=== PATIENT | female | born 1955 | race Caucasian/White ===

== ENCOUNTER 2020-08-05 11:23 | Outpatient (REF) | payer MEDICARE, SELFPAY | END 2020-08-05 11:24 | disposition home or self-care (01) | LOC: HO.MANLNP 11:23 | PROVIDERS: PCP Internal Medicine; Visit Provider Physician Assistant | DX: R30.9 Painful micturition, unspecified (principal) | CPT/HCPCS: 87086; 87088; 87186 ==

== ENCOUNTER 2021-04-30 13:51 | Outpatient (REF) | payer MEDICARE, SELFPAY ==
--- NOTE | ~2021-04-30 | MM_ITS ---
EXAMINATION: BONE DENSITOMETRY CLINICAL INDICATION: Osteopenia. COMPARISON: This is the patient's baseline examination. TECHNIQUE: Using a [employer] DXA System (software version: 13.1) manufactured by [employer], dual-energy x-ray absorptiometry was performed of the lumbar spine and left hip. The images are of good technical quality. Summary results are attached. FINDINGS: AP SPINE L1-L4: BMD 1.018 g/cm2, Z-score -0.1, T-score -1.4, osteopenia. LEFT FEMUR, NECK: BMD 0.817 g/cm2, Z-score -0.3, T-score -1.6, osteopenia. LEFT FEMUR, TOTAL: BMD 0.874 g/cm2, Z-score -0.1, T-score -1.1, osteopenia. IDENTIFIED RISK FACTORS: Height loss, menopause. HISTORY OF FRACTURE: None listed. MEDICATIONS: Multivitamin, vitamin D. MM/XR DEXA axial skeleton IMPRESSION: 1. DIAGNOSIS: Osteopenia based on the lowest T-score value of -1.6 in the femoral neck applying World Health Organization criteria. 2. 10-YEAR FRACTURE RISK PREDICTION, FRAX: Major osteoporotic fracture (clinical spine, forearm, hip or shoulder) 8.9%. Hip fracture 1.0%. 3. Treatment Recommendations: NOF guidelines recommend consideration for treatment in postmenopausal women and men age 50 and older presenting with the following: -A hip or vertebral (clinical or morphometric) fracture. -T-score less than or equal to -2.5 at the femoral neck or spine after appropriate evaluation to exclude secondary causes. -Low bone mass at the hip or spine and a 10-year fracture probability by FRAX of greater than or equal to 3% for hip fracture or greater than or equal to 20% for major osteoporotic fracture based on the [place] adapted WHO algorithm. 4. Other Recommendations: All treatment decisions require clinical judgment and consideration of individual patient factors, including patient preferences, comorbidities, previous drug use, risk factors not captured in the FRAX model (e.g. frailty, falls, vitamin D deficiency, increased bone turnover, interval significant decline in bone density) and possible under or overestimation of fracture risk by FRAX. Additional medical evaluation for secondary cause of low bone mineral density may be appropriate. FUTURE SCAN RECOMMENDATION: People with diagnosed cases of osteoporosis or at high risk for fracture should have regular bone mineral density tests. For patients eligible for Medicare, routine testing is allowed once every 2 years. The testing frequency can be increased to one year for patients who have rapidly progressing disease, those who are receiving or discontinuing medical therapy to restore bone mass, or have additional risk factors.
== END 2021-04-30 13:52 | disposition home or self-care (01) ==
LOC: HO.MAMMO 13:51
PROVIDERS: Visit Provider Internal Medicine
DX: Z13.820 Encounter for screening for osteoporosis (principal); M85.88 Other specified disorders of bone density and structure, other site; Z78.0 Asymptomatic menopausal state; Z79.899 Other long term (current) drug therapy
CPT/HCPCS: 77080

== ENCOUNTER 2022-05-05 13:57 | Outpatient (REF) | payer MEDICARE, SELFPAY | END 2022-05-05 13:58 | disposition home or self-care (01) | LOC: HO.MAMMO 13:57 | PROVIDERS: Visit Provider Internal Medicine | DX: Z12.31 Encounter for screening mammogram for malignant neoplasm of breast (principal) | CPT/HCPCS: 77063; 77067 ==

== ENCOUNTER 2023-09-06 13:52 | Outpatient (REF) | payer MEDICARE, SELFPAY ==
--- NOTE | ~2023-09-06 | MM_ITS ---
EXAMINATION: BONE DENSITOMETRY CLINICAL INDICATION: Osteoporosis. COMPARISON: Baseline BD dated 04/30/2021. TECHNIQUE: Using a [employer] DXA System (software version: 13.1) manufactured by [employer], dual-energy x-ray absorptiometry was performed of the lumbar spine and left hip. The images are of good technical quality. Summary results are attached. FINDINGS: LEFT FEMUR, NECK: Current: BMD 0.686 g/cm2, Z-score -1.1, T-score -2.5, osteoporosis. Baseline: BMD 0.817 g/cm2. LEFT FEMUR, TOTAL: Current: BMD 0.706 g/cm2, Z-score -1.3, T-score -2.4, osteopenia, 19.2% decrease from baseline (<5% change is not significant). Baseline: BMD 0.874 g/cm2. AP SPINE L1-L4: Current: BMD 1.019 g/cm2, Z-score 0.0, T-score -1.3, osteopenia, 0.1% increase from baseline (<5% change is not significant). Baseline: BMD 1.018 g/cm2. IDENTIFIED RISK FACTORS: Menopause, height loss. HISTORY OF FRACTURE: None listed. MEDICATIONS: Calcium, vitamin D. MM/XR DEXA axial skeleton IMPRESSION: 1. DIAGNOSIS: Osteoporosis based on the lowest T-score value of -2.5 in the femoral neck applying World Health Organization criteria. 2. 10-YEAR FRACTURE RISK PREDICTION, FRAX: According to the guidelines, FRAX calculation should only be performed on patients in the osteopenia bone density category. Therefore, FRAX was not performed on this patient. 3. Treatment Recommendations: NOF guidelines recommend consideration for treatment in postmenopausal women and men age 50 and older presenting with the following: -A hip or vertebral (clinical or morphometric) fracture. -T-score less than or equal to -2.5 at the femoral neck or spine after appropriate evaluation to exclude secondary causes. -Low bone mass at the hip or spine and a 10-year fracture probability by FRAX of greater than or equal to 3% for hip fracture or greater than or equal to 20% for major osteoporotic fracture based on the [place] adapted WHO algorithm. 4. Other Recommendations: All treatment decisions require clinical judgment and consideration of individual patient factors, including patient preferences, comorbidities, previous drug use, risk factors not captured in the FRAX model (e.g. frailty, falls, vitamin D deficiency, increased bone turnover, interval significant decline in bone density) and possible under or overestimation of fracture risk by FRAX. Additional medical evaluation for secondary cause of low bone mineral density may be appropriate. FUTURE SCAN RECOMMENDATION: People with diagnosed cases of osteoporosis or at high risk for fracture should have regular bone mineral density tests. For patients eligible for Medicare, routine testing is allowed once every 2 years. The testing frequency can be increased to one year for patients who have rapidly progressing disease, those who are receiving or discontinuing medical therapy to restore bone mass, or have additional risk factors.
== END 2023-09-06 13:53 | disposition home or self-care (01) ==
LOC: HO.MAMMO 13:52
PROVIDERS: PCP Internal Medicine; Visit Provider Physician Assistant
DX: Z13.820 Encounter for screening for osteoporosis (principal); Z78.0 Asymptomatic menopausal state; M81.0 Age-related osteoporosis without current pathological fracture
CPT/HCPCS: 77080

== ENCOUNTER 2024-03-28 15:29 | Outpatient (REF) | payer MEDICARE, SELFPAY ==
--- NOTE | ~2024-03-28 | MM_ITS ---
EXAMINATION: MM SCREENING DIGITAL BREAST TOMOSYNTHESIS, BILATERAL CLINICAL INFORMATION: Screening. Asymptomatic. COMPARISON: Mammography: Comparison is made with available priors TECHNIQUE: Digital breast mammography with tomosynthesis is performed in both the craniocaudal and mediolateral oblique views along with computer-aided detection (CAD). FINDINGS: There are scattered areas of fibroglandular density (ACR BI-RADS breast composition Category b). Asymmetry lateral left breast posterior depth on CC view stable dating back to 2019. There are no significant masses, abnormal calcifications, or other abnormalities. MM/MM tomosynthesis screening BI IMPRESSION: No mammographic evidence of malignancy. ASSESSMENT: BI-RADS BI-RADS 2 - Benign Findings RECOMMENDATION: Routine annual mammography screening. 1 year F/U This examination should not preclude the clinical evaluation of a suspicious palpable abnormality. This patient's information was entered into a reminder system with a target due date for their next mammogram. Electronically signed by: Danuta Martin DO 04/06/2024 01:41 PM [facility]
== END 2024-03-28 15:30 | disposition home or self-care (01) ==
LOC: HO.MAMMO 15:29
PROVIDERS: PCP Internal Medicine; Visit Provider Internal Medicine
DX: Z12.31 Encounter for screening mammogram for malignant neoplasm of breast (principal)
CPT/HCPCS: 77063; 77067

== ENCOUNTER → 2024-03-28 15:45 | Outpatient (BNV) | payer MEDICARE, SELFPAY | PROVIDERS: PCP Internal Medicine; Visit Provider Internal Medicine | DX: Z12.31 Encounter for screening mammogram for malignant neoplasm of breast (principal) | CPT/HCPCS: 77063; 77067 ==

== ENCOUNTER 2024-10-01 11:23 | Day surgery (SDC) | payer MEDICARE, SELFPAY ==
--- OUTSIDE RECORDS SUMMARY | 2024-05-18 07:54 | XMS_ITS | Patient Health Record ---
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 Name Role Phone Black Lyn Primary Care Provider Alexi Sow Unavailable [phone] ALLERGIES Allergen (clinical drug ingredient) Drug/Non Drug Allergy documented on EMR Reaction Allergy Type Onset Date Status Substance with sulfonamide structure and antibacterial mechanism of action (substance) Sulfa Antibiotics Unknown Drug Allergy A ctive sulfamethoxazole / trimethoprim Bactrim Unknown Drug Allergy Active amoxicillin / clavulanate Augmentin Unknown Drug Allergy Active REASON FOR REFERRAL No Information MEDICATIONS Medication SIG (Take, Route, Frequency, Duration) Notes Start Date End Date Status Escitalopram Oxalate 20 MG TAKE 1 TABLET BY MOUTH EVERY DAY Oral for 90 Active PriLOSEC OTC 20 MG 1 tablet 30 minutes before morning meal Orally PRN Active Calcium 1500 MG 1 tablet with food O rally Twice a day for 30 day(s) 03/28/2024 Active Vitamin D 1000 UNIT 1 capsule Orally Onc e a day for 30 day(s) 03/28/2024 Active IMMUNIZATIONS Vaccine Route Administration Date Status Comme nts Influenza Unknown 03/06/2024 Administered SOCIAL HISTORY Tobacco Use: Social History Observation Description Date Details (start date - stop date) Never Smoker NA - NA Sex Assigned At : Social History Observation Description Sex Assigned At Unknown Tobacco Use/Smoking Question Answer Notes Patient is a nonsmoker Alcohol Screen Question Answer Notes Did you have a drink containing alcohol in the p ast year? No Points 0 Interpretation Negative PROBLEMS Problem Type ICD Code Onset Dates Problem Status W/U Status Risk SNOMED Code Notes Problem Colon cancer screening (Z12.11) Active confirmed Colon cancer screening (660308770) Problem Encounter for other preprocedural examination (Z01.818) Active confirmed Pre-procedure evaluation check (311380866) VITAL SIGNS Temperature 97.3 degrees Fahrenheit 03/28/2024 Blood pressure diastolic 00 mm Hg 03/28/2024 Height 4 ft 11 in in 03/28/2024 Blood pressure systolic 000 mm Hg 03/28/2024 Weight 161 lb 6 oz lbs 03/28/2024 BMI 32.59 kg/m2 03/28/2024 Encounters Encounter Location Date Provider Diagnosis [facility] [address] [place] [address] 03/28/2024 Alexi Navarro Colon cancer screeni ng Z12.11 and Encounter for other preprocedural examination Z01.818 ASSESSMENTS Encounter Date Diagnosis Assessment Notes Treatment Notes Treatment Clinical Notes 03/28/2024 Colon cancer screening (ICD-10 - Z12.11) 03/28/2024 Encounter for other preprocedural examination (ICD-10 - Z01.818) PLAN OF TREATMENT Future Test Test Name Order Date COLONOSCOPY 03/28/2024 Next Appt Details Provider Name:Alexi Navarro , 07/23/2024 11:30:00 AM, [address] [facility] , [place], [place], [id number], Insurance Providers Payer Name Payer Address Payer Phone Subscriber Number Group Number Insured Name Patient Relationship to Insured Coverage Start Date Coverage End Date [facility] [address] [address] [place] [address] [id number] ADRIA ROBERTS Self - patient is the insured MEDICAL (GENERAL) HISTORY Medical History History ICD Code Denies ID,DM,CVA,Lung disease,renal dise ase Negative screening colonoscopy in 2010 Norovirus 10/2023 Depression Surgical History Surgery Date(Month/Year) Retina repair in right eye Cataract surgery right eye [facility]
--- OUTSIDE RECORDS SUMMARY | 2024-05-18 07:55 | XMS_ITS | Data Portability ---
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 MEET 2 OUT OF 3 ELEMENTS: PROBLEMS, DATA OR RISK ELEMENT 1: PROBLEMS ADDRESSED 1 OR MORE CHRONIC ILLNESS WITH EXACERBATION OR 2 OR MORE STABLE CHRONIC ILLNESSES OR 1 UNDIAGNOSED NEW PROBLEM OR 1 ACUTE ILLNESS W/SYMPTOMS OR 1 ACUTE COMPLICATED INJURY ELEMENT 2: DATA MUST MEET 1 OF 3 CATEGORIES CATEGORY 1: REVIEW OF PRIOR EXTERNAL NOTES, REVIEW OF RESULTS, ORDERING OF EACH TEST, ASSESSMENT REQUIRING INDEPENDENT HISTORIAN OR CATEGORY 2: INDEPENDENT INTERPRETATION OF TESTS BY ANOTHER PHYSICIAN OR SPECIALIST OR CATEGORY 3: DISCUSSION OF MGT OR TEST INTERPRETATION W/EXTERNAL PHYSICIAN OR SPECIALIST ELEMENT 3: RISK RISK OF COMPLICATIONS AND/OR MORBIDITY OR MORTALITY OF PATIENT MANAGEMENT PROVIDER MUST THOROUGHLY DOCUMENT EACH ELEMENT THAT IS COVERED Not available 01/07/2023 16:18:25 06/08/2023 06/08/2023 [id number] [place] [id number] (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 MEET 2 OUT OF 3 ELEMENTS: PROBLEMS, DATA OR RISK ELEMENT 1: PROBLEMS ADDRESSED 1 OR MORE CHRONIC ILLNESS WITH EXACERBATION OR 2 OR MORE STABLE CHRONIC ILLNESSES OR 1 UNDIAGNOSED NEW PROBLEM OR 1 ACUTE ILLNESS W/SYMPTOMS OR 1 ACUTE COMPLICATED INJURY ELEMENT 2: DATA MUST MEET 1 OF 3 CATEGORIES CATEGORY 1: REVIEW OF PRIOR EXTERNAL NOTES, REVIEW OF RESULTS, ORDERING OF EACH TEST, ASSESSMENT REQUIRING INDEPENDENT HISTORIAN OR CATEGORY 2: INDEPENDENT INTERPRETATION OF TESTS BY ANOTHER PHYSICIAN OR SPECIALIST OR CATEGORY 3: DISCUSSION OF MGT OR TEST INTERPRETATION W/EXTERNAL PHYSICIAN OR SPECIALIST ELEMENT 3: RISK RISK OF COMPLICATIONS AND/OR MORBIDITY OR MORTALITY OF PATIENT MANAGEMENT PROVIDER MUST THOROUGHLY DOCUMENT EACH ELEMENT THAT IS COVERED Not available 06/08/2023 13:55:33 Plan of Treatment Reminders Order Date Submit Date Provider Last Modified By Organization Details Last Modified Time Details Appointments None recorded. Lab urinalysis complete, reflex culture 2023 [facility], [address] [place] [address], [id number], 4 06:46:18 uric acid, serum or plasma 2023 [facility], [address] [place] [address], 18[address], 4 11:48:31 ESR (erythrocy te sedimentat ion rate), blood 2023 [facility], [address] [place] [address], [address], 4 11:48:31 lyme disease igg+igm, serum, reflex western blot 2023 [facility], [address] [place] [address], [address], 4 15:15:58 JONNY + rf (antinucle ar antibodies + rheumatoid factor), quantitati ve, serum 2023 024 [facility], [address] [place] [address], [address], 4 11:48:31 dsDNA Ab, serum 2023 [facility], [address] [place] [address], [address], 4 15:08:26 ccp (cyclic citrullina antonino peptide) iga+igg, serum 2023 [facility], [address] [place] [address], [address], 4 08:44:59 C-reactive protein, quantitati ve, serum or plasma 2023 [facility], [address] [place] [address], 313[address], 4 11:48:31 PTH (parathyro id hormone), intact + calcium, serum or plasma 2023 [facility], [address] [place] [address], [address], 4 19:40:31 CK (creatine kinase), total, serum 2023 [facility], [address] [place] [address], [address], 4 11:48:31 TSH + free T4, serum 2023 [facility], [address] [place] [address], [address], 4 11:48:31 thyroid peroxidase (tpo) Ab, serum 2023 [facility], [address] [place] [address], 12[address], 4 11:48:30 iron + TIBC + ferritin, serum 2023 024 [facility], [address] [place] [address], 28035, 4 11:48:30 vitamin D, 25-hydroxy , total, serum 2023 024 [facility], [address] [place] [address], [address], 4 11:48:30 vitamin B12 + folate, serum or blood 2023 024 [facility], [address] [place] [address], 739[address], 4 06:47:05 CBC w/ auto diff 2023 024 [facility], [address] [place] [address], 05992, 4 06:45:57 magnesium, serum or plasma 2023 024 [facility], [address] [place] [address], [address], 4 11:48:30 phosphorus , serum or plasma 2023 024 [facility], [address] [place] [address], [address], 4 11:48:31 hemoglobin A1c, QN, blood 2023 024 [facility], [address] [place] [address], 744[address], 4 06:46:40 CBC w/ auto diff 2023 024 [facility] ([facility]), [address] [place] [address], [address], 4 15:11:36 CMP, serum or plasma 2023 024 [facility] ([facility]), [address] [place] [address], [address], 4 15:11:36 amylase + lipase, serum 2023 024 [facility] ([facility]), [address] [place] [address], 17184, 4 15:11:36 gamma-glut amyl transferas e (ggt), serum 2023 024 [facility] ([facility]patient), [address] [place] [address], 80[address], 4 15:11:36 calprotect in, stool 2023 [facility] (Out[facility]), [address] [place] [address], [address], 4 08:51:18 ESR (erythrocy te sedimentat ion rate), blood 2023 024 [facility] (Outpatient), [address] [place] [address], [address]79, 4 15:11:36 C-reactive protein, quantitati ve, serum or plasma 2023 024 [facility] (Outpatient), [address] [place] [address], [address], 4 15:11:36 gastrointe stinal pathogens panel, PCR, stool 2023 024 [facility] (Outpatient), [address] [place] [address], [address], 4 10:04:59 Referral gastroente rologist referral 2023 024 pedro Navarro MD, [address] [place] [address], [address], 4 08:38:47 Procedures None recorded. Surgeries None recorded. Imaging CT, head + brain, w/o contrast 2022 023 [email or web address] Not available 3 08:41:16 CT, abdomen + pelvis, w/o contrast 2023 024 [email or web address] Not available 4 12:22:13 Medication Orders clotrimazo le-betamet hasone 1 %-0.05 % topical cream 2022 023 [place] [facility], [address] [place], [address], 3 16:24:26 nitrofuran toin monohydrat e/macrocry stals 100 mg capsule 2023 024 [facility], [address] [place], [address], 4 14:53:22 metronidaz ole 500 mg tablet 2023 024 [facility]2024, [address] [place], [address], 4 10:36:20 Patient TargetsNo targets recorded. 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 for Screening for malignant neoplasm of colon overdue for colonoscopy Referring Physician: Renata Blue, Internal Medicine, Encounter Date: 11/28/2023 Results Created Date Observation Date Name Description Value Unit Range Abnormal Flag Note LastModifiedBy Organization Detail LastModifiedTime 01/08/2001/07/2023 pulse oxime try* Result 96% Not Available [facility] [address] [place], [address], 01/03/2023 09:02:00 06/08/19 24 06/08/2023 pulse oxime try* Result 96% Not Available [facility] [address] [facility] [place], [address], 06/07/2023 18:14:54 05/14/20 22 05/05/2022 MAMMO , scree eriberto, digit al, bilat eral No observ ation record ed. [address] [place], [address], 05/14/2022 12:32:27 02/19/20 23 02/16/2023 CT, head + brain , w/o contr ast No observ ation record ed. [facility] [address] [place] [address], [address], 02/20/2023 21:44:28 09/07/19 24 09/06/2023 bone densi ty No observ ation record ed. [address] [place], [address], 09/07/2023 09:08:02 09/07/19 24 09/06/2023 bone densi ty No observ ation record ed. [address] [place], [address], 09/07/2023 09:47:33 12/28/19 24 12/23/2023 CT, abdom en + pelvi s, w/o contr ast No observ ation record ed. [email or web address] [address], [address], 12/30/2023 09:33:37 04/06/20 24 03/28/2024 MAMMO , scree eriberto, digit al, bilat eral No observ ation record ed. [address] [place], [address], 04/06/2024 13:56:36 Result Notes None recorded. Problems Name Problem SNOMED Code Status Onset Date Resolution Date Notes Provider Name and Address Organization Details Recorded Time Anxiety 03889584 Active 2018 Not Available [facility] 2 12:46:54 Vitamin D deficienc y 19873805 Active 2019 Not Available [facility] 2 12:46:54 Mood disorder 33296334 Active 2019 Not Available [facility] 2 12:46:54 Lumbar DXA scan result osteopeni c 517501381 Active 2020 Not Available [facility] 2 12:46:54 Postmenop ausal osteopeni a 108346028 Active 2021 Not Available [facility] 2 12:46:54 Chronic obstructi ve pulmonary disease 24319147 Active 2021 Black Lyn, DO [address] [place] [address], [address], [facility] 2 16:02:04 Serous otitis media 10152503 Active 2021 Black Lyn, DO [address] [place] [address], [address], [facility] 2 16:02:15 Acute bronchiti s 36429290 Active 2022 INDER ALVARADO [address] [place] [address], [address], [facility] 3 11:01:58 Unilatera l left sided headache 6809903670 Active 2022 Black Lyn DO [address] [place] [address], [address], [facility] 3 16:15:27 Intertrig o 55959262 Active 2022 Black Lyn DO [address] [place] [address], [address], [facility] 3 16:24:01 Acute urinary tract infection 683180153 Active 2022 INDER ALVARADO [address] [place] [address], [address], [facility] 3 14:06:00 Multiple joint pain 47176648 Active 2023 INDER ALVARADO [address] [place] [address], [address], [facility] 4 11:36:59 Fatigue 34032201 Active 2023 INDER ALVARADO [address] [place], [address], [facility] 4 11:38:55 Hyperpara thyroidis m 56362806 Active 2023 INDER ALVARADO [address] [place], [address], [facility] 4 09:23:40 Osteoporo sis 51757101 Active 2023 INDER ALVARADO [address] [place], [address], [facility] 4 14:06:44 Asthma 461055826 Active 2017 Not Available [facility] 2 12:46:54 Cyst of left ovary 786098653406 58786 Active 2017 Not Available [facility] 2 12:46:54 Cyst of kidney 434499135 Active 2017 left Not Available [facility] 2 12:46:54 Gastroeso phageal reflux disease 065823558 Active 2017 Not Available [facility] 2 12:46:54 Hiatal hernia 46877758 Active 2017 Not Available [facility] 2 12:46:54 Osteopeni a 909349233 Active 2017 lower spine/ hip Not Available [facility] 2 12:46:54 Hyperchol esterolem ia 76199430 Active 2017 Not Available [facility] 2 12:46:54 Premature atrial contracti on 642968531 Active 2017 Not Available [facility] 2 12:46:54 Ventricul ar premature beats 76560380 Active 2017 Not Available [facility] 2 12:46:54 Impaired fasting glycemia 063966669 Active 2017 Not Available [facility] 2 12:46:54 Diverticu litis of colon 950204853 Active 2023 INDER ALVARADO [address] [place], [address], [facility] 15:03:30 Problem Notes None recorded. Procedures Surgical History Date Name Laterality Status Provider Name and Address Organization Details Recorded Time 6 Date of Last Pap Smear completed [facility] 10/09/2018 08:18:30 6 Most Recent Mammogram completed Fallon Jordan [facility] 11/06/2018 11:58:21 1 Colonoscopy completed Savannah Jimenez [facility] 10/09/2018 08:19:55 Imaging Results Imaging Date Name Status LastModified by Organiz ation Details LastModified Time 05/05/2022 MAMMO, screening, digital, bilateral completed [address] [place], [address], 05/14/2022 12:32:27 02/16/2023 CT, head + brain, w/o contrast completed [email or web address] [facility] [address] [place] [address], [address], 02/20/2023 21:44:28 09/06/2023 bone density completed [address] [place], [address], 09/07/2023 09:08:02 09/06/2023 bone density completed [address] [place], [address], 09/07/2023 09:47:33 12/23/2023 CT, abdomen + pelvis, w/o contrast completed [email or web address] [place] [address], [address], 12/30/2023 09:33:37 03/28/2024 MAMMO, screening, digital, bilateral completed [email or web address] [address] [place], [address], 04/06/2024 13:56:36 Procedure Notes None recorded. Medical Equipment None Reported. Allergies Allergen ID Allergen Name Allergen Category Reaction Reaction Severity Criticality Documentation Date Start Date Code Code System Note Provider Name and Address Organization Details Recorded Time 874 Bactrim medicatio n rash Not available Not available 08/31/2017 32245 9 RxNorm Norma Sainiicki [facility] 8 08:19:35 875 Augmentin medicatio n diarrhea severe Not available 08/31/2017 19252 2 RxNorm Norma Sainiicki [facility] 8 08:19:57 876 Levaquin medicatio n rash mild Not available 08/31/2017 45403 2 RxNorm Norma Layton [facility] 8 08:20:31 877 Substance with sulfonami de structure and antibacte rial mechanism of action (substanc e) medicatio n rash Not available Not available 08/31/2017 89281 8003 SNOMED Norma Layton [facility] 8 08:20:42 Medications Name Sig Start Date Stop Date Status Note LastModified by Organization Details LastModified Time prednisone 10 mg tablet take 40 mg x 3 daystake 30 mg x 3 days take 20 mg x 3 days take 10 mg x 3 days 08/27 completed Not Available Not Available Not Available nitrofurant oin macrocrysta l 50 mg capsule TAKE 1 CAPSULE BY MOUTH AFTER INTERCOUR SE 11/27 completed Not Available Not Available Not Available cefaclor 500 mg capsule 08/27 completed Not Available Not Available Not Available ofloxacin 0.3 % eye drops 03/16 completed Not Available Not Available Not Available citalopram 10 mg tablet Take 1 tablet every day by oral route for 30 days. 10/09 completed Not Available Not Available Not Available Medrol (Rob) 4 mg tablets in a dose pack Take 1 dose pk by oral route. 2023 active Not Available Not Available Not Avai lable Zithromax Z-Rob 250 mg tablet TAKE 2 TABLETS (500 MG) BY ORAL ROUTE ONCE DAILY FOR 1 DAY THEN 1 TABLET (250 MG) BY ORAL ROUTE ONCE DAILY FOR 4 DAYS 2023 active Not Available Not Available Not Avai lable ketorolac 0.5 % eye drops 08/07 completed Not Available Not Available Not Available prednisolon e acetate 1 % eye drops,suspe nsion 03/16 completed Not Available Not Available Not Available lorazepam 0.5 mg tablet take 1-2 tablets bid prn panic 11/25 completed Not Available Not Available Not Available meclizine 25 mg tablet Take 1 tablet 3 times a day by oral route as needed for 10 days. 08/27 completed Not Available Not Available Not Available diazepam 2 mg tablet Take 1 tablet 3 times a day by oral route as needed for 7 days. 02/05 completed Not Available Not Available Not Available cephalexin 500 mg capsule Take 1 capsule 3 times a day by oral route for 7 days. 06/24 completed Not Available Not Available Not Available oseltamivir 75 mg capsule 07/03 completed Not Available Not Available Not Available clotrimazol e-betametha sone 1 %-0.05 % topical cream APPLY TO AFFECTED & SURROUNDI NG AREAS TWICE A DAY FOR 2 WEEKS TOPICALLY IN THE MORNING AND EVENING active Not Available Not Available No t Available polymyxin B sulfate 10,000 unit-trimet hoprim 1 mg/mL eye drops PLACE 1 DROP INTO RIGHT EYE 4 TIMES A DAY 3 DAYS PRIOR TO SURGERY AND CONTINUE THE DAY AFTER 03/16 completed Not Available Not Available Not Available albuterol sulfate HFA 90 mcg/actuati on aerosol inhaler INHALE 1-2 PUFFS EVERY 4-6 HOURS NEEDED active Not Available Not Available No t Available escitalopra m 10 mg tablet TAKE 1 AND 1/2 TABLETS DAILY BY MOUTH 02/05 completed Not Available Not Available Not Available escitalopra m 20 mg tablet TAKE 1 TABLET BY MOUTH EVERY DAY 2023 active Not Available Not Available Not Avai lable nitrofurant oin monohydrate /macrocryst als 100 mg capsule TAKE 1 CAPSULE BY MOUTH TWICE A DAY FOR 10 DAYS 11/27 completed Not Available Not Available Not Available Boostrix Tdap 2.5 Lf unit-8 mcg-5 Lf/0.5 mL intramuscul ar syringe ADM 0.5ML IM UTD 07/30 completed Not Available Not Available Not Available Calcium 500 once a day active Not Available Not Available No t Available Vitamin D3 25 mcg (1,000 unit) chewable tablet Take 2 tablets every day by oral route. active Not Available Not Available No t Available BinaxNOW COVID-19 Ag Self Test kit FOLLOW PACKAGE DIRECTION S 08/07 completed Not Available Not Available Not Available Vitals Date Recorded Body height Body mass index (BMI) Body weight Heart rate Oxygen saturation Oxygen saturation in Arterial blood by Pulse oximetry Systolic blood pressure Diastolic blood pressure Provider Name and Address Organization Details Last Updated DateTime 2 151.77 cm 32.5 kg/m2 65128.4 6 g 80 /min 98 % 98 % 128 mm[Hg] 78 mm[Hg] Black Lyn, DO [address] [place], [address] [place] [address] Internal [facility] 2 15:19:54 Date Recorded Body height Body mass index (BMI) Body weight Heart rate Oxygen saturation Oxygen saturation in Arterial blood by Pulse oximetry Systolic blood pressure Diastolic blood pressure Provider Name and Address Organization Details Last Updated DateTime 3 151.77 cm 33.1 kg/m2 21773.5 2 g 85 /min 96 % 96 % 140 mm[Hg] 84 mm[Hg] Priscila Mendez [facility] 3 15:59:43 Date Recorded Body height Body mass index (BMI) Body weight Heart rate Oxygen saturation Oxygen saturation in Arterial blood by Pulse oximetry Systolic blood pressure Diastolic blood pressure Provider Name and Address Organization Details Last Updated DateTime 4 151.77 cm 32.7 kg/m2 20319.3 3 g 81 /min 96 % 96 % 138 mm[Hg] 80 mm[Hg] Priscila Mendez [facility] 4 13:37:52 Date Recorded Body height Body mass index (BMI) Body weight Heart rate Oxygen saturation Oxygen saturation in Arterial blood by Pulse oximetry Systolic blood pressure Diastolic blood pressure Provider Name and Address Organization Details Last Updated DateTime 4 151.77 cm 33.2 kg/m2 71709.3 9 g 76 /min 98 % 98 % 132 mm[Hg] 84 mm[Hg] Amaya Diallo [facility] 4 11:28:34 Date Recorded Body height Body mass index (BMI) Body weight Heart rate Oxygen saturation Oxygen saturation in Arterial blood by Pulse oximetry Systolic blood pressure Diastolic blood pressure Provider Name and Address Organization Details Last Updated DateTime 4 151.13 cm 32.8 kg/m2 42668.7 4 g 60 /min 98 % 98 % 118 mm[Hg] 70 mm[Hg] Cl Deleon [facility] 4 14:55:01 Social History Question Answer Notes LastModified by Organizat ion Details LastModified Time Tobacco Smoking Status Former Smoker Not Available [facility] 03/25/2020 03:36:24 What Was The Date Of Your Most Recent Tobacco Screening? 11/28/2023 [email or web address] Information not available 11/28/2023 Do You Or Have You Ever Used Any Other Forms Of Tobacco Or Nicotine? No Information not available 08/31/2021 Sex: Unknown Functional Status None recorded. Mental Status None recorded. Family History Nothing Reported. Medical History No medical history recorded. Gynecological History Statement/Question Response Date of Last Pap Smear 12/03/2015 Most Recent Mammogram 12/02/2015 Obstetrics History GPAL:G 0 P 0 0 0 0 Immunizations Vaccine Type Date Status Note Provider Nam e and Address Organization Details Recorded Time COVID-19, mRNA, LNP-S, PF, 30 mcg/0.3 mL dose 08/10/19 21 completed Black Lyn DO [address] [place] [address], [address], [facility] 01/07/2021 15:30:22 COVID-19, mRNA, LNP-S, PF, 30 mcg/0.3 mL dose 09/10/19 22 completed INDER ALVARADO [address] [place] [address], [address], [facility] 09/10/2021 13:41:18 Pneumococcal conjugate PCV20, polysaccharide BVB169 conjugate, adjuvant, PF 09/24/19 22 completed Not Available [facility] 08/27/2022 03:01:06 Influenza, split virus, quadrivalent, preservative 06/23/19 22 completed Savannah ware [facility] 09/25/2021 13:28:21 Influenza, split virus, quadrivalent, preservative 03/03/20 18 [facility] 03/06[facility]2018 08:16:58 Influenza, split virus, quadrivalent, preservative 02/04/20 22 completed Black Lyn, [address] [place], [address], [facility] 03/16/2022 15:18:10 Influenza, split virus, quadrivalent, preservative 02/13/20 19 [facility] 02/13/2019 08:01:26 Influenza, split virus, quadrivalent, preservative 01/23/20 20 completed Black Lyn, [address] [place], [address], [facility] 01/24/2020 18:38:24 Tdap 02/12/20 20 completed Norma Layton [facility] 02/13/2020 13:31:12 COVID-19, mRNA, LNP-S, PF, 30 mcg/0.3 mL dose 07/19/19 21 [facility] 07/30/[facility] 14:03:23 Past Encounters Encounter ID Performer Location Encounter Start Date Encounter Closed Date Diagnosis/Indication Diagnosis SNOMED-CT Code Diagnosis ICD10 Code [id number] Yarely Chavez NP, [address] [place] [address] 08/31/2017 11:24:03 08/31/2017 11:59:14 Asthmatic bronchitis 226149296 J45.909 [id number] Yarely Chavez NP, [address] [place] [address] 09/20/2017 10:44:43 09/20/2017 15:54:17 Blood in urine 89006529 R31.9 Acute cystitis 03298408 N30.01 [id number] Yarely Chavez NP, [facility] [address] [place] [address] 07/03/2018 11:17:46 07/03/2018 14:37:47 Asthma 461556665 J45.909 Hypercholesterolemia 136 30130 E78.00 Impaired f asting glycemia 144482626 R73.01 Otitis media 70939998 H6 6.93 [id number] [facility] [address] [place] [address] [place] [address] 11/07/2018 15:08:45 11/07/2018 16:50:17 Adult health examination 215960560 Z00.00 Active or passive immunization 259936566 Z23 Hypercholesterolemia 136 47516 E78.00 Asthma 270200599 J45.90 9 Gastroesop hageal reflux disease 363143252 K21.9 Body mass index 25-29 - overweight 261328147 Z68.25 Vitamin D deficiency 347 00336 E55.9 Osteopenia 162066600 M85 .80 Impaired f asting glycemia 040576289 R73.01 Lightheadedness 09244896 8 R42 [id number] [facility] [address] [place] [address] [place] [address] 11/29/2018 14:38:46 11/29/2018 15:35:11 Atypical chest pain 739102858 R07.89 Increased blood pressure 39862805 R03.0 Panic disorder [id number] F41.0 [id number] [facility] [address] [place] [address] [place] [address] 07/06/2019 15:48:36 07/10/2019 11:09:00 Asthma [id number] J45.909 Gastroesop hageal reflux disease 685426469 K21.9 Impaired f asting glycemia 774169871 R73.01 Otitis media 40540864 H6 6.92 Vertigo 462829428 R42 [id number] [facility] [address] [place] [address] mehran [place] [address] 08/12/2019 11:15:59 08/20/2019 10:45:35 Acute exacerbation of asthma 333343564 J45.901 Acute sinusitis 88208780 J01.90 [id number] Cordelia MICHAEL Fountain [facility] Internal [facility] [address] [facility],[place] [address] 08/28/2019 09:06:47 08/28/2019 10:53:19 Anxiety 68008241 F41.9 Asthma 658370210 J45.90 9 [id number] INDER ALVARADO [facility] [address] [place] [address],[place] [address] 09/07/2019 10:15:25 09/07/2019 11:58:49 Anxiety 95538046 F41.9 Depressive disorder 3548 9007 F32.9 [id number] INDER ALVARADO [facility] [address] [place] [address],[place] [address] 09/11/2019 10:31:52 09/11/2019 12:12:08 Anxiety 01037798 F41.9 Depressive disorder 3548 [id number] [facility] Internal [facility] [address] [place] [address],[place] [address] 10/08/2019 14:46:15 10/08/2019 15:29:45 Asthma 784185953 J45.909 Impaired f asting glycemia 324203379 R73.01 Posttrauma tic stress disorder 21393242 F43.[id number] [facility] [address] [place] [address],[place] [address] 11/02/2019 14:13:52 11/02/2019 15:30:34 Asthma 694922748 J45.909 Anxiety 35549104 F41.9 Vitamin D deficiency 347 26416 E55.9 Impaired f asting glycemia 954366138 R73.01 Hypercholesterolemia [id number] [facility] [address] [place] [address],[place] [address] 11/13/2019 15:48:38 11/13/2019 16:49:57 Mood disorder 90887130 F39 Impaired f asting glycemia 792314729 R73.01 Premature atrial contraction 722435504 I49.1 [id number] [facility] [address] [place] [address] 11/26/2019 13:41:31 11/26/2019 14:37:39 Asthma 811444696 J45.909 Anxiety 72615051 F41.9 Posttrauma tic stress disorder 96777501 F43.10 [id number] [facility] [address] [place] [address] 12/26/2019 14:07:00 12/26/2019 14:53:23 Mood disorder 56198568 F39 Asthma 252600337 J45.90 9 Ventricula r premature beats 86302362 I49.3 Impaired f asting glycemia 162985531 R73.01 [id number] [facility] [address] [place] [address] 02/06/2020 11:05:30 02/06/2020 11:47:26 Anxiety 61509205 F41.9 Impaired f asting glycemia 324183661 R73.01 Asthma 359773177 J45.90 9 [id number] [facility] [address] [place] [address] 03/24/2020 13:42:44 03/24/2020 14:57:16 Asthma 893114307 J45.909 Impaired f asting glycemia 081662052 R73.01 [id number] [facility] [address] [place] [address] 07/30/2020 13:57:27 07/30/2020 14:38:03 Active or passive immunization 333897054 Z23 Adult [facility] th examination 959502006 Z00.00 Asthma 454678779 J45.90 9 Osteopenia 996508465 M85 .80 [id number] RENATA BLUE [facility] Internal Medicine [address] [place] [address] 08/05/2020 10:53:16 08/05/2020 11:25:52 Dysuria 33519591 R30.9 Asthma 642601233 J45.[id number] [facility] [address] [place] [address] 01/07/2021 15:19:35 01/07/2021 15:59:33 Impaired fasting glycemia 376586346 R73.01 Gastroesop hageal reflux disease 114625116 K21.9 Asthma 116433640 J45.90 9 Mood disorder 56757075 F 39 Lumbar DXA scan result osteopenic 343647411 M85.[id number] [facility] [address] [place] [address] 08/31/2021 15:53:39 09/01/2021 10:26:47 Asthma 227521061 J45.909 Hypercholesterolemia 136 86375 E78.00 Impaired f asting glycemia 313404267 R73.01 Hepatitis C screening 41 6909981 Z11.59 Mood disorder 19128814 F 39 Postmenopa usal osteopenia 229249629 M85.80 [id number] INDER ALVARADO [facility] [address] [place] [address] 09/25/2021 13:25:09 09/28/2021 15:40:42 Pre-surgery evaluation 943772473 Z01.[id number] [facility] [address] [place] [address] 03/16/2022 14:54:15 03/16/2022 16:09:36 Active or passive immunization 352578888 Z23 Adult [facility] th examination 464652875 Z00.00 Impaired f asting glycemia 131188690 R73.01 Hepatitis C screening 41 5282052 Z11.59 Screening mammography 24 838946 Z12.31 Advance care planning 71 8334510 Z71.89 Serous otitis media 8032 7007 H65.93 Chronic ob structive pulmonary disease 67023430 J44.9 [id number] [facility] [address] [facility] [address] 01/07/2023 15:52:59 01/07/2023 16:26:46 Asthma 224429307 J45.909 Chronic ob structive pulmonary disease 59453612 J44.9 Hypercholesterolemia 136 43693 E78.00 Premature atrial contraction 931443252 I49.1 Unilateral left sided headache 4218853060 R51.9 Mood disorder 64784794 F 39 Intertrigo 32644602 L30. 4 [id number] [facility] [address] [facility] [address] 06/08/2023 13:31:00 06/08/2023 14:44:15 Pre-surgery evaluation 806014736 Z01.818 Chronic ob structive pulmonary disease 18835866 J44.9 Serous otitis media 8032 7007 H65.93 [id number] INDER ALVARADO [facility] [address] [facility] [address] 08/08/2023 11:14:13 08/08/2023 11:49:48 Multiple joint pain 94770962 M25.59 Fatigue 18025510 R53.83 Acute urin mary tract infection 350283207 N39.0 Osteopenia 305227307 M85 .80 [id number] INDER ALVARADO [facility] [address] [facility] [address] 11/28/2023 14:44:19 11/28/2023 15:19:31 Depression screening 715532352 Z13.31 Diverticul itis of colon 579254864 K57.32 Screening for malignant neoplasm of colon 860587826 Z12.11 Health Concerns Section Related Observation LastModified by Organization Detai ls LastModified Time None Recorded Concern Status LastModified by Organization Details LastModified Time None Recorded Advance Directives Directive None Recorded Payers Encounter Date Sequence Insurance Name Policy Number Policy Ulloa Covered Member ID Ulloa Member ID Guarantor Name 03/16/2022 1 [facility] (MEDICARE REPLACEMENT/A DVANTAGE - HMO) [id number] Pamela Rivers [id number] Pamela Rivers 01/07/2023 1 [facility] (MEDICARE REPLACEMENT/A DVANTAGE - HMO) [id number] Pamela Rivers [id number] Pamela Rivers 06/08/2023 1 [facility] (MEDICARE REPLACEMENT/A DVANTAGE - HMO) [id number] Pamela Rivers [id number] Pamela Rivers 08/08/2023 1 [facility] (MEDICARE REPLACEMENT/A DVANTAGE - HMO) [id number] Pamela Rivers [id number] Pamela Rivers 11/28/2023 1 [facility] (MEDICARE REPLACEMENT/A DVANTAGE - HMO) [id number] Pamela Rivers [id number] Pamela Rivers Notes Date Note Type Note Provider Name a mo Address Organization Details Recorded Time 2 text/html Annual WellnessReported bypatient.Diet and Nutrition:healthy diet Fracture Risk:no history of fractures; no recent explained fracture; no sudden unexplained fractures; no previous musculoskeletal injuries Physical Activity:exercises on a regular basis; recent increase in physical activity; good physical condition Additional Lifestyle Factors:no tobacco use; no alcohol intake; stopped drinking alcohol Depression Risk:never feels sad, empty, or tearful; no loss of interest in activities; no significant changes in weight; no sleep disturbances or insomnia; no agitation; no loss of energy; no feelings of worthlessness or guilt; no thoughts of suicide; no history of depression; no history of mood disorders Hearing:no loss of hearing Vision:no vision problemsNotes:having trouble with jeevan blocked ears The patient denies recent falls or recurrent falls. Denies instability, weakness, abnormal gait, or difficulties with movement. The patient wears correct, supportive shoes and is not otherwise severely visually impaired. The patient is full weight bearing and if using the assistance of a cane or walker feels supported and stable with the use of such devices. All medical conditions have been taken into account that may pose a risk for the patient for falls. Home barron, carpets and/or rugs do not pose a challenge for the patient. The patient has been educated about the use of vitamin D supplementation for bone health and prevention of hypotensive episodes that may increase risk for fall. All question and concerns were answered to the patient's satisfaction. Black Lyn, DO [address] [facility], [place], [address], [facility] 03/16/2022 16:03:35 3 text/html noted to have started to develop pain behind her right forehead and eye with pain radiating down her cheek it like an electrical feeling very sharp and lasts seconds and is gonealso is getting some headaches on left side of her headsaid that the pain is getting worse in frequency Black DollyHilda Lyn DO [address] [place], [address], [facility] 01/07/2023 16:26:30 4 text/html Pre-OpReported bypatient.Risk Factorsno cognitive impairment; no functional impairment; no malnutrition; no frailty; able to climb a flight of stairs (exercise capacity>4 METS); no obstructive sleep apnea; non-smoker; no alcohol misuse; no illicit drug use; no chronic cardiopulmonary condition; not obese Anesthesia hx:no hx of anesthesia complications; no allergy to anesthetic agents; no family history of anesthesia complications Functional Ability:able to walk up stairs; able to perform heavy work around the house; no difficulty walking up hills; able to walk 4 mph Black Lyn DO [address] [place], [address], [facility] 06/08/2023 14:01:34 4 text/html c/o multiple joint pain the patient reports that she has been having more achey and fatiguedthe patient reports she tires out more easilyhaving some issues with full inhale, feels so ribs painthe patient denies chest painhas been using her inhaler much more frequently that usual though the patient is sleeping okay, sleeps through the night, wakes up refreshed but then as she goes throughout the day doing chores and working around the house she gets more run down, having more joint pain, feels generalized weakness the patient denies any cough, fever, chillsno vision changes, no headaches, negative COVID-19 did think she had the a UTI at some point, didn't have abx, used AZO symptoms improved occasionally dizziness, but could be her inner ear, hx of fluid build uptold her to use nasal spray, keep chin tucked INDER ALVARADO [address] [place], [address], [facility] 08/08/2023 11:45:26 4 text/html c/o diarrhea x 2 weeks the patient reports for the past few months she has had intermittent diarrhea that lasts for a few days to a weekthe patient noted she has had diarrhea for two weeks, everyday constantlyshe is also having LLQ pain and felt generally ill the patient decided to go on a bland, liquid diet which helped improve symptoms sounds like diverticulitisthe patient reports that she has been doing BRAT diet currently, and this past week the patient reports that she was diagnosed with diverticulosis will start on metro and f/u with BW and stool sampleneeds new colonoscopy INDER ALVARADO [address] [place], [address], [facility] 11/28/2023 15:14:10 OBGyn Episode No OBEpisode recorded.
[2024-09-27 13:55] VITALS: BMI 32.5
--- NOTE | 2024-09-28 09:27 | HO.ANESPROP2 ---
Documented by User: Whitley Waldron NP 09/28/24 09:27 HPI - Anesthesia Eval Consult details Narrative: 69yo F for Colonoscopy [facility] Past Medical History Medical History (Updated 09/27/24 @ 13:59 by Georgina White RN) GERD (gastroesophageal reflux disease) Depression Surgical History Surgical History (Updated 09/27/24 @ 13:57 by Georgina White RN) Hx of cataract extraction Hx of eye surgery Hx of cholecystectomy H/O colonoscopy Social History Social History (Updated 09/27/24 @ 13:57 by Georgina White RN) Household Members: Spouse Are you a primary career services officer to a significant other at home: No Do you presently have visiting nurse or other home services: No Patient Tobacco Use Status: Never used Tobacco Second Hand Smoke Exposure: No Use of substances other than those prescribed or required for medical reasons: No Have you been hit, kicked, punched, or otherwise hurt by someone within the past year? If so, by whom?: No Are you DNR?: No Advance Directives: No Advance Directives Information Provided: Yes Advance Directives on File: No Patient : No : No Poor oral hygiene: No Meds Allergies Allergy/AdvReac Type Severity Reaction Status Date / Time sulfamethoxazole Allergy Intermediate RASH Verified 10/01/24 12:01 [From BACTRIM] trimethoprim [From BACTRIM] Allergy Intermediate RASH Verified 10/01/24 12:01 Home Medications ?Medication ?Instructions ?Recorded ?Confirmed ?Last Taken ?Type escitalopram oxalate 20 mg tablet 20 mg PO DAILY 09/27/24 09/27/24 09/30/24 History omeprazole magnesium 20 mg 20 mg PO DAILY PRN Acid Reflux 09/27/24 09/27/24 09/30/24 History tablet,delayed release (Prilosec OTC) calcium carb-ergocalciferol (vit 2 tab PO 10/01/24 09/29/24 History D2) 600 mg calcium-200 unit tablet Exam Height,Weight and Vital Signs: Height 4 ft 11 in Weight 73.028 kg Assessment and Plan Assessment Anesthesia Assessment: Chart Reviewed Documented by User: Aakash Rogers MD 10/01/24 12:37 [facility] Past Medical History Medical History (Updated 09/27/24 @ 13:59 by Georgina White RN) GERD (gastroesophageal reflux disease) Depression Family History Family history of problems with anesthesia: No Surgical History Surgical History (Updated 09/27/24 @ 13:57 by Georgina White RN) Hx of cataract extraction Hx of eye surgery Hx of cholecystectomy H/O colonoscopy History of Problems with Anesthesia: No Social History Social History (Updated 09/27/24 @ 13:57 by Georgina White RN) Household Members: Spouse Are you a primary career services officer to a significant other at home: No Do you presently have visiting nurse or other home services: No Patient Tobacco Use Status: Never used Tobacco Second Hand Smoke Exposure: No Use of substances other than those prescribed or required for medical reasons: No Have you been hit, kicked, punched, or otherwise hurt by someone within the past year? If so, by whom?: No Are you DNR?: No Advance Directives: No Advance Directives Information Provided: Yes Advance Directives on File: No Patient : No : No Poor oral hygiene: No Meds Allergies Allergy/AdvReac Type Severity Reaction Status Date / Time sulfamethoxazole Allergy Intermediate RASH Verified 10/01/24 12:01 [From BACTRIM] trimethoprim [From BACTRIM] Allergy Intermediate RASH Verified 10/01/24 12:01 Home Medications ?Medication ?Instructions ?Recorded ?Confirmed ?Last Taken ?Type escitalopram oxalate 20 mg tablet 20 mg PO DAILY 09/27/24 09/27/24 09/30/24 History omeprazole magnesium 20 mg 20 mg PO DAILY PRN Acid Reflux 09/27/24 09/27/24 09/30/24 History tablet,delayed release (Prilosec OTC) calcium carb-ergocalciferol (vit 2 tab PO 10/01/24 09/29/24 History D2) 600 mg calcium-200 unit tablet Exam Airway Mallampati Class: II TM Dist: <=3cm Neck ROM: Full Loose/Missing/Broken Teeth: Yes Heart: ok Lungs: ok Assessment and Plan Assessment Anesthesia Assessment: Anesthesia Plan Discussed Final Anesthetic Review Family History of Problems with Anesthesia: No History of Problems with Anesthesia: No NPO: Yes ASA Class: II Final Preanesthetic Review: No Changes in Pt Med Stat, Meds/Allgs Chart Reviewed, Consent Obtained/Reviewed and Anes Risks/Benef Reviewed Patient Risk: Intermediate Procedure Risk: Low Anesthetic Plan Anesthetic Plan: MAC: and Agree w/ Assess. and Plan Disposition: Standard PACU
[2024-10-01 11:52] VITALS: BMI 33.3
[2024-10-01 11:54] VITALS: BP 157/69; PULSE 104; RESP 15; TEMP 36.7; O2SAT 96
[2024-10-01] MEDS: Lactated Ringers 1,000 ML 100 ML IVCONT (12:01)
[2024-10-01 13:29] VITALS: BP 104/54; PULSE 84; RESP 18; TEMP 36.7; O2SAT 94
--- NOTE | 2024-10-01 13:29 | P.BOP_ITS ---
Brief Operative Note Date of Service: 10/01/24 Pre-op diagnosis: Screening Post-op diagnosis: other (Diverticulosis) Procedure: Colonoscopy to the cecum and TI Surgeon: Alexi Navarro MD Anesthesia: MAC Was an Packaging Materials Inspector used for this Procedure?: No Estimated blood loss (mL): 0 Pathology: none sent Condition: stable Disposition: PACU
[2024-10-01 13:32] VITALS: BP 115/56; PULSE 84; RESP 18; O2SAT 95
[2024-10-01 13:44] VITALS: BP 123/62; PULSE 76; RESP 18; O2SAT 96
[2024-10-01 13:53] VITALS: TEMP 36.6
--- NOTE | 2024-10-01 16:20 | OP_ITS ---
DATE OF SERVICE: 10/01/2024 SURGEON: Alexi Navarro MD INDICATIONS: The patient presents for evaluation of colorectal cancer screening. Full consent has been obtained from her for this, including risks of bleeding and perforation. PREOPERATIVE DIAGNOSIS: Colorectal cancer screening. POSTOPERATIVE DIAGNOSIS: PROCEDURE PERFORMED: Colonoscopy to the cecum and terminal ileum. ESTIMATED BLOOD LOSS: COMPLICATIONS: ANESTHESIA: Monitored anesthesia care. ASSISTANTS: SPECIMENS: POSTOPERATIVE DIAGNOSES: Colorectal cancer screening, sigmoid diverticulosis, and internal hemorrhoids. DESCRIPTION OF PROCEDURE: The patient was placed in the left lateral decubitus position. The digital rectal exam revealed no abnormalities. The Olympus video pediatric colonoscope was then entered into the rectum and advanced easily to the cecum. Once in the cecum, I did identify normal-appearing cecal pouch with appendiceal orifice and a normal-appearing ileocecal valve. The terminal ileum was cannulated and appeared normal. The scope was withdrawn back in the colon. The entire cecum and ileocecal valve appeared normal. Scope was slowly withdrawn assessing all mucosal surfaces carefully. Preparation was excellent. I did not visualize any sign of polyps, colitis, nor angiodysplasia. There was a mild amount of sigmoid diverticulosis. In the rectum, scope was retroflexed, visualizing internal hemorrhoids, but no other pathology. The rectal mucosa appeared normal. Scope was straightened and withdrawn from the patient. She tolerated the procedure well and was returned to the recovery area in stable condition. IMPRESSION: 1. Sigmoid diverticulosis. 2. Internal hemorrhoids. PLAN: Given today's negative exam, no family history of colon cancer, and her age, I do not think she will need any further screening colonoscopies since she would be just about 80 years old when the time for that came. As such, she will see me on a p.r.n. basis. MD MARYLU Keller/KAMILAH / [phone]
== END 2024-10-01 14:18 | disposition home or self-care (01) ==
PROVIDERS: PCP Internal Medicine; Visit Provider Internal Medicine
PROC: 0DJD8ZZ Inspection of Lower Intestinal Tract, Via Natural or Artificial Opening Endoscopic (ICD-10-PCS; CPT 45378; principal; 2024-10-01 12:30)
DX: Z12.11 Encounter for screening for malignant neoplasm of colon (principal); K57.30 Diverticulosis of large intestine without perforation or abscess without bleeding; K64.8 Other hemorrhoids; K21.9 Gastro-esophageal reflux disease without esophagitis; F32.A Depression, unspecified; Z79.899 Other long term (current) drug therapy; Z90.49 Acquired absence of other specified parts of digestive tract; Z98.890 Other specified postprocedural states; Z88.1 Allergy status to other antibiotic agents; Z88.2 Allergy status to sulfonamides
CPT/HCPCS: G0121; J2003; J2704; J3010